=== PATIENT | female | born 1990 | race Caucasian/White ===

== ENCOUNTER 2019-08-18 04:14 | Emergency (ER) | payer BC ==
[~2019-08-18] VITALS: Ht 162.6 cm; Wt 54.4 kg
[2019-08-18 04:27] VITALS: BP 113/77
--- NOTE | 2019-08-18 04:28 | NUR ---
ER Nurse Note: Pt walked in c/o RT FA pain. Pt stated she went snowboarding in the weekend and fell couple timesl; no pain then. Pt stated she hit a cabinet around 0200 at home and has 9/10 pain. Cap refill <3 sec on RT hand. Increased pain with joint movement. Pt unable to extend elbow fully without pain. Ice provided. ERMD at pt side; will continue to [facility].
[2019-08-18] MEDS ORDERED: HYDROcodone/Acetamin 5/325 tab ORAL ONE (04:30)
--- NOTE | 2019-08-18 04:30 | Emergency Room Report ---
History of Present Illness General Chief Complaint: Upper Extremity Injury Source: Patient Present Illness [facility] This a 29-year-old female who is right-hand dominant. She presents with complaint of right forearm pain. She fell and tumbled several times while she was snowboarding last weekend. She has some pain to the proximal forearm. Got worse when she fell again tonight and bumped it again. Pain is sharp. Worse with palpation and movement. No fever chills no nausea no vomiting. No deformity. There is some swelling. Pain is 8 out of 10. Worse with palpation and movement. No other injury. Allergies: Coded Allergies: No Known Allergies (Unverified , 08/18/19) Patient History Past Medical History: see triage record, old chart reviewed Past Surgical History: none Pertinent Family History: none Social History: Denies: smoking Last Menstrual Period: 07/2019 Now: No Immunizations: other Reviewed Nursing Documentation: PMH: Agreed; PSxH: Agreed Nursing Documentation-PMH Past Medical History: No Stated History Review of Systems Eye: Denies: eye pain, blurred vision ENT: Denies: ear pain, nose congestion, throat swelling Respiratory: Denies: cough, shortness of breath Cardiovascular: Denies: chest pain, palpitations Gastrointestinal: Denies: abdominal pain, diarrhea, nausea, vomiting Musculoskeletal: Reports: muscle pain; Denies: back pain, joint pain Skin: Denies: rash Neurological: Denies: headache, numbness Endocrine: Denies: increased thirst, increased urine Hematologic/Lymphatic: Denies: easy bruising All Other Systems: negative except mentioned in HPI Physical Exam Vital Signs Date Time Temp Pulse Resp B/P (MAP) Pulse Ox O2 Delivery O2 Flow Rate FiO2 08/18/19 04:17 98.8 100 16 113/77 (89) 96 Room Air Vitals normal Sp02 EP Interpretation: reviewed, normal General Appearance: well appearing, no apparent distress, alert Head: normocephalic, atraumatic Eyes: bilateral eye PERRL, bilateral eye EOMI ENT: hearing grossly normal, normal pharynx Neck: full range of motion, supple, no meningismus Respiratory: chest non-tender, lungs clear, normal breath sounds Cardiovascular #1: regular rate, rhythm, no murmur Gastrointestinal: normal bowel sounds, non tender, no mass, no organomegaly, no bruit, non-distended Musculoskeletal: back normal, normal range of motion, gait/station normal, tender - Tender to proximal right forearm. Full range of motion of the wrist and elbow. Psychiatric: mood/affect normal Procedures Splinting Splinting : Consent: Verbal Hand-Made Type: plaster Splint: sugar-tong Pre-Proc Neuro Vasc Exam: normal Post-Proc Neuro Vasc Exam: normal Patient Tolerated: Well Complications: None Medical Decision Making Diagnostic Impression: Primary Impression: Ulna fracture Qualified Codes: S52.234A - Nondisplaced oblique fracture of shaft of right ulna, initial encounter for closed fracture ER Course Patient presents with a nondisplaced midshaft fracture of her ulnar of the forearm. No dislocation. No displacement. Patient splinted. Will discharge home with orthopedic follow-up. Other X-Ray Diagnostic Results Other X-Ray Diagnostic Results : X-Ray ordered: Right forearm x-rays # of Views/Limited Vs Complete: 2 View Indication: Pain EP Interpretation: Yes Interpretation: no dislocation, no soft tissue swelling, other - Shaft ulnar fracture Impression: Other - mid shaft ulna frx Electronically Signed by: Sean Martinez MD Last Vital Signs Date Time Temp Pulse Resp B/P (MAP) Pulse Ox O2 Delivery O2 Flow Rate FiO2 08/18/19 04:27 98.8 100 16 113/77 96 Room Air Status: improved Disposition: HOME, SELF-CARE Condition: Stable Scripts Ibuprofen* (MOTRIN*) 600 Mg Tablet 600 MG ORAL THREE TIMES A DAY, #30 TAB 0 Refills Prov: Sean Martinez MD 08/18/19 Hydrocodone/Acetaminophen 5-325* (HYDROCODONE/ACETAMINOPHEN 5-325*) 1 Each Tablet 1 TAB ORAL Q6H PRN for For Pain, #20 TAB 0 Refills Prov: Sean Martinez MD 08/18/19 Additional Instructions: Elevate arm. Ice pack to the area. Follow-up with your doctor on Tuesday for orthopedic doctor referral. Return if symptoms worsen. Sean Martinez MD Aug 18, 2019 04:30
[2019-08-18] MEDS ORDERED: HYDROCODON-ACE1 EA15 ORAL (05:01)
[2019-08-18] MEDS ORDERED: IBUPROFEN600 MG ORAL (05:01)
--- NOTE | 2019-08-18 05:03 | Diagnostic Imaging Report ---
EXAM: XR Left Forearm, 2 Views CLINICAL HISTORY: TRAUMA TECHNIQUE: Frontal and lateral views of the right forearm. COMPARISON: No relevant prior studies available. FINDINGS: Bones/joints: Nondisplaced oblique fracture of midshaft of ulna. No dislocation. Soft tissues: Unremarkable. IMPRESSION: Nondisplaced oblique fracture of midshaft of ulna
[2019-08-18 05:15] VITALS: BP 113/77
--- NOTE | 2019-08-18 05:15 | NUR ---
ER Nurse Note: Pt seen, treated, cleared to be discharged per ERMD. Discharge instructions given with repeat verbalization by pt. Encouraged pt follow up with primary care doctor within two days. Pt is aox4, on room air, with stable vital signs, no signs of distress. Splint applied;R.I.C.E. teaching and repeat verbailzation by pt. ID band removed. Pt is able to ambulate with steady gait. pt took all belongings.
== END 2019-08-18 05:15 | disposition home or self-care (01) ==
LOC: EMR 04:56
DX: S52.234A Nondisplaced oblique fracture of shaft of right ulna, initial encounter for closed fracture (principal); W19.XXXA Unspecified fall, initial encounter; Y93.23 Activity, snow (alpine) (downhill) skiing, snowboarding, sledding, tobogganing and snow tubing; Y92.9 Unspecified place or not applicable
CPT/HCPCS: 29125; 99283